=== PATIENT | female | born 1975 | race Caucasian/White ===

== ENCOUNTER 2022-08-04 22:01 | Inpatient (IN) | payer BC ==
[~2022-08-04] VITALS: Ht 172.7 cm; Wt 81.2 kg
[2022-08-04] MEDS ORDERED: HYDROcodone-ACET 5/325MG TAB PO ONE (22:15)
[2022-08-04 22:31] LABS: Basophils # (auto) 0 10 ^3/uL (0-0.2); Eosinophils # (auto) 0.2 10 ^3/uL (0-0.8); Hemoglobin 14.1 g/dL (12.2-16.2); Lymphocytes # (auto) 2.2 10 ^3/uL (0.4-5.4); Monocytes # (auto) 0.5 10 ^3/uL (0-1.3); Nucleated Red Blood Cells % 0.1 %
[2022-08-04 22:32] LABS: Basophils % (auto) 0.6 % (0.0-2.0); Eosinophils % (auto) 3.4 % (0.0-7.0); Hematocrit 42.7 % (36.0-46.0); Lymphocytes % (auto) 35.2 % (10.0-50.0); Mean Corpuscular Hemoglobin 34.2 pg (28.0-32.0); Mean Corpuscular Volume 103.9 fL (80.0-100.0); Monocytes % (auto) 7.4 % (0.0-12.0); Neutrophils # (auto) 3.4 10 ^3/uL (1.6-8.6); Neutrophils % (auto) 53.4 % (37.0-80.0); Red Blood Cells 4.11 10^6/uL (4.0-5.20); Red Cell Distribution Width 13.8 % (11.8-14.3); White Blood Cell 6.3 10^3/uL (4.4-10.8)
[2022-08-04 22:50] LABS: Albumin 4.1 g/dL (3.4-5.0); Calcium 8.9 mg/dL (8.5-10.1); Potassium 3.9 mmol/L (3.5-5.1)
[2022-08-04 22:53] LABS: BUN/Creatinine Ratio 18.9; Bilirubin, Total 0.5 mg/dL (0.2-1.0); Total Protein 7.6 g/dL (6.4-8.2)
[2022-08-05] MEDS ORDERED: NITROGLYCERIN 0.4 MG SL TAB SL PRN (02:00)
[2022-08-05] MEDS ORDERED: ACETAMINOPHEN 325 MG TAB PO PRN (02:00)
[2022-08-05] MEDS ORDERED: hydrALAZINE HCL 20 MG/ML VL IV PRN (02:00)
[2022-08-05] MEDS ORDERED: HYDROcodone-ACET 5/325MG TAB PO PRN (02:00)
[2022-08-05] MEDS ORDERED: DOCUSATE SOD 100 MG CAP PO PRN (02:00)
[2022-08-05 04:18] LABS: Basophils # (auto) 0 10 ^3/uL (0-0.2); Basophils % (auto) 0.4 % (0.0-2.0); Eosinophils # (auto) 0.2 10 ^3/uL (0-0.8); Eosinophils % (auto) 3.6 % (0.0-7.0); Hematocrit 40.2 % (36.0-46.0); Hemoglobin 13.2 g/dL (12.2-16.2); Lymphocytes # (auto) 1.7 10 ^3/uL (0.4-5.4); Lymphocytes % (auto) 35.4 % (10.0-50.0); Mean Corpuscular Hgb Conc. 32.7 g/dL (32.0-36.0); Mean Corpuscular Volume 103.8 fL (80.0-100.0); Monocytes # (auto) 0.4 10 ^3/uL (0-1.3); Monocytes % (auto) 7.4 % (0.0-12.0); Neutrophils # (auto) 2.6 10 ^3/uL (1.6-8.6); Neutrophils % (auto) 53.2 % (37.0-80.0); Nucleated Red Blood Cells % 0.1 %; Red Blood Cells 3.88 10^6/uL (4.0-5.20); Red Cell Distribution Width 13.6 % (11.8-14.3); White Blood Cell 4.9 10^3/uL (4.4-10.8)
[2022-08-05 04:28] LABS: Albumin 3.6 g/dL (3.4-5.0); Calcium 8.6 mg/dL (8.5-10.1); Potassium 3.7 mmol/L (3.5-5.1)
[2022-08-05 04:31] LABS: BUN/Creatinine Ratio 18.8
[2022-08-05 04:43] LABS: Bilirubin, Total 0.6 mg/dL (0.2-1.0)
[2022-08-05] MEDS: SODIUM CHLOR 0.9% PF (SALINE LOCK) 10ML VIAL/SYR IV SCH ×3 (06:00→21:48)
[2022-08-05] MEDS: LEVOTHYROXINE SODIUM 88 MCG TAB PO SCH (08:11)
[2022-08-05] MEDS: ONDANSETRON HCL 4 MG/2 ML VIAL IV PRN ×4 (08:12→23:56)
[2022-08-05] MEDS: MORPHINE SULFATE INJ 2 MG/ml SYRG IV PRN ×3 (08:12→18:18)
[2022-08-05] MEDS: ASPirin 81 mg TAB PO SCH (10:04)
[2022-08-05] MEDS: HCTZ 25 MG TAB PO SCH (12:53)
[2022-08-05] MEDS: amLODIPine BESYLATE 5 MG TAB PO SCH (12:54)
[2022-08-05] MEDS ORDERED: LORazepam 2MG/ML-1ML VIAL IV ONE (15:00)
[2022-08-05 18:25] VITALS: BP 156/96
[2022-08-05 20:00] VITALS: BP 143/86
[2022-08-05 20:26] LABS: Urine WBC None Seen /hpf (0 - 5)
[2022-08-05 20:37] LABS: Urine Bacteria NONE SEEN /hpf (None Seen); Urine Blood Negative /uL (Negative); Urine Specific Gravity 1.012 (1.001-1.035)
[2022-08-05] MEDS ORDERED: LEVO88TA4 PO (21:20)
[2022-08-05] MEDS: LOSARTAN POTASSIUM 50 MG TAB PO SCH (21:48)
[2022-08-05] MEDS: ATORVASTATIN 20 MG TAB PO SCH (21:49)
[2022-08-06] MEDS: MORPHINE SULFATE INJ 2 MG/ml SYRG IV PRN (00:12)
[2022-08-06 05:00] VITALS: BP 121/75
[2022-08-06] MEDS: SODIUM CHLOR 0.9% PF (SALINE LOCK) 10ML VIAL/SYR IV SCH ×3 (06:11→23:06)
[2022-08-06] MEDS: LEVOTHYROXINE SODIUM 88 MCG TAB PO SCH (06:11)
[2022-08-06 06:25] LABS: Basophils # (auto) 0 10 ^3/uL (0-0.2); Basophils % (auto) 0.3 % (0.0-2.0); Eosinophils # (auto) 0.2 10 ^3/uL (0-0.8); Eosinophils % (auto) 3.2 % (0.0-7.0); Hematocrit 42.8 % (36.0-46.0); Hemoglobin 14.5 g/dL (12.2-16.2); Lymphocytes # (auto) 1.3 10 ^3/uL (0.4-5.4); Lymphocytes % (auto) 25.9 % (10.0-50.0); Mean Corpuscular Hemoglobin 35.1 pg (28.0-32.0); Mean Corpuscular Hgb Conc. 33.9 g/dL (32.0-36.0); Mean Corpuscular Volume 103.5 fL (80.0-100.0); Monocytes # (auto) 0.4 10 ^3/uL (0-1.3); Monocytes % (auto) 8.6 % (0.0-12.0); Neutrophils # (auto) 3.2 10 ^3/uL (1.6-8.6); Nucleated Red Blood Cells % 0.1 %; Red Blood Cells 4.14 10^6/uL (4.0-5.20); Red Cell Distribution Width 13.6 % (11.8-14.3); White Blood Cell 5.1 10^3/uL (4.4-10.8)
[2022-08-06 06:39] LABS: Albumin 3.6 g/dL (3.4-5.0); BUN/Creatinine Ratio 12.3; Calcium 8.8 mg/dL (8.5-10.1); Potassium 3.8 mmol/L (3.5-5.1)
[2022-08-06 06:42] LABS: Bilirubin, Total 0.8 mg/dL (0.2-1.0); Total Protein 6.8 g/dL (6.4-8.2)
[2022-08-06 09:00] VITALS: BP 121/75
[2022-08-06] MEDS: ASPirin 81 mg TAB PO SCH (09:51)
[2022-08-06] MEDS: LOSARTAN POTASSIUM 50 MG TAB PO SCH ×2 (09:51→23:00)
[2022-08-06] MEDS: amLODIPine BESYLATE 5 MG TAB PO SCH (09:52)
[2022-08-06] MEDS: HCTZ 25 MG TAB PO SCH (09:52)
[2022-08-06 12:56] VITALS: BP 117/79
[2022-08-06 17:00] VITALS: BP 106/70
[2022-08-06 22:00] VITALS: BP 119/70
[2022-08-06] MEDS: ATORVASTATIN 20 MG TAB PO SCH (23:00)
[2022-08-06] MEDS: METOCLOPRAMIDE HCL 10 MG TAB PO SCH (23:04)
[2022-08-06] MEDS: SODIUM CHLORIDE 0.9% 1,000 ML IV SCH (23:12)
[2022-08-07 05:00] VITALS: BP 114/69
[2022-08-07] MEDS: SODIUM CHLOR 0.9% PF (SALINE LOCK) 10ML VIAL/SYR IV SCH (06:37)
[2022-08-07] MEDS: METOCLOPRAMIDE HCL 10 MG TAB PO SCH (06:38)
[2022-08-07] MEDS: LEVOTHYROXINE SODIUM 88 MCG TAB PO SCH (06:38)
[2022-08-07 08:06] VITALS: BP 115/77
[2022-08-07] MEDS: LOSARTAN POTASSIUM 50 MG TAB PO SCH (09:41)
[2022-08-07] MEDS: ASPirin 81 mg TAB PO SCH (09:41)
[2022-08-07] MEDS: HCTZ 25 MG TAB PO SCH (09:42)
[2022-08-07] MEDS: amLODIPine BESYLATE 5 MG TAB PO SCH (09:42)
[2022-08-07] MEDS: SODIUM CHLORIDE 0.9% 1,000 ML IV SCH ×2 (11:56→12:56)
[2022-08-07 12:10] VITALS: BP 119/74
[2022-08-07 13:01] VITALS: BP 136/87
[2022-08-07] MEDS ORDERED: DexAMETHasone SOD PHOS 10MG/1ML VIAL INJ IV SCH (22:00)
== END 2022-08-07 12:55 | disposition home or self-care (01) | DRG 305 ==
LOC: ER 22:01 → TELE 08-05 02:05 → TELE-WESTW 08-05 17:15
PROVIDERS: ADMIT Nurse Practitioner Family; ATTEND Internal Medicine
DX: I16.0 Hypertensive urgency (principal); E03.9 Hypothyroidism, unspecified; Z20.822 Contact with and (suspected) exposure to COVID-19; I10 Essential (primary) hypertension; G43.909 Migraine, unspecified, not intractable, without status migrainosus; Z82.49 Family history of ischemic heart disease and other diseases of the circulatory system; Z90.710 Acquired absence of both cervix and uterus; Z88.0 Allergy status to penicillin; Z79.899 Other long term (current) drug therapy
CPT/HCPCS: 36415; 70551; 71046; 80053; 81001; 84443; 84484; 85025; 87426; 87804; 93005; 93306; 96374; 96375; G0378; J2405